=== PATIENT | female | born 1980 | race African-American/Black ===

== ENCOUNTER 2018-02-21 09:54 | Emergency (ER) | payer SELFPAY | END 2018-02-21 12:05 | disposition home or self-care (01) | LOC: D.ER 09:54 | DX: S29.012A Strain of muscle and tendon of back wall of thorax, initial encounter (principal); V73.6XXA Passenger on bus injured in collision with car, pick-up truck or van in traffic accident, initial encounter; Y93.89 Activity, other specified; Y92.410 Unspecified street and highway as the place of occurrence of the external cause; S39.012A Strain of muscle, fascia and tendon of lower back, initial encounter; M62.838 Other muscle spasm; I10 Essential (primary) hypertension ==